=== PATIENT | female | born 1970 | race Caucasian/White ===

== ENCOUNTER → 2017-01-13 | Outpatient (CLI) | payer BC ==
[~2017-01-13] MED LIST: ALBU6.7H IH; ESTR-29 PO; FLUT16SP NS; LORC10TA PO; MELO15TA14 PO; MOME0.243 INH; PREG150C PO; ROPIVACAINE 1% 10 MG/ML (NAROPIN) 10 ML AMPUL ONE; SODIUM CHLORIDE VIAL (PF) 10 ML IV ONE; TIZA2CAP PO; methylPREDNISolone 80 MG/ML (DEPO MEDROL) VIAL IM ONE
--- NOTE | 2017-01-13 15:06 | PAIN MANAGEMENT ---
Date of note: 01/13/2017 Procedure: SI joint injection on the right side under fluoroscopy Fluoroscopy exposure 21 seconds This is a 46-year-old patient of Dr. Shilpa Church. The patient presents with right sacroiliitis. Informed consent was achieved for a right SI joint under fluoroscopic guidance. Orders for procedure verified. Patient denies any bleeding tendencies. After informed consent obtained, the patient was positioned in the lateral for the sacroiliac joint injection. The area was prepped and draped using aseptic technique. The skin and overlying tissues were localized with 5 mL of 1% Preservative-Free lidocaine using a 27-gauge 1.5-inch needle. A 21-gauge 2-inch needle was guided into the joint space utilizing fluoroscopy. Isovue 240, 0.2 mL was injected with proper placement of Isovue. No blood or paresthesia noted on entry. Then 10 mL of 0.02% ropivacaine with Depo-Medrol 80 mg were injected with negative aspiration every 2 mL. The patient remained supine for 20 minutes and developed no motor deficit of the lower extremity prior to release. Pre- and post procedure vital signs stable. Instruction on followup contact and care provided to the patient.
== END ==
LOC: PMC 13:54
PROVIDERS: ATTEND Family Medicine
DX: M53.3 Sacrococcygeal disorders, not elsewhere classified (principal); M46.1 Sacroiliitis, not elsewhere classified

== ENCOUNTER → 2017-02-13 | Outpatient (CLI) | payer BC ==
--- NOTE | 2017-02-16 09:00 | PAIN MANAGEMENT ---
Date of note: 02/13/2017 Procedure: Caudal epidural steroid injection Total fluoroscopic exposure time: 21 seconds This is a 46-year-old female patient under the care of Dr. Shilpa Church. The patient was referred to anesthesia for the purpose of an epidural steroid injection secondary to disk bulge with radicular symptoms. The patient had an MRI done, which showed a small broad-based disk bulge at L4-5 and L5-S1. The patient's pain is lumbosacral in nature. She has more pain following the S1-S2 dermatome levels with some potential involvement of L5. It radiates straight down the back of her leg, into her foot and then across her hip and buttock area. Based on presentation today we decided to proceed forward with a caudal epidural steroid injection. Informed consent was obtained and the patient was taken to the operating room for the use of fluoroscopic guidance for needle tip placement. The patient was placed in the left lateral decubitus. Orders for procedure verified. Patient denies any bleeding tendencies. After informed consent obtained, the patient was positioned for the caudal injection. Landmarks identified. The site was prepped and draped using aseptic technique. The skin and overlying tissues were localized with a 3 mL of Preservative-Free 1% lidocaine using a 1.5-inch 27-gauge needle. A 21-gauge 2-inch needle was then inserted to the caudal space via the sacral hiatus. No blood, cerebral spinal fluid, pain, or paresthesia was noted on entry. Depo-Medrol 80 mg and ropivacaine 0.2% in normal saline for a total of 10 mL was injected slowly without mass volume effect. Negative aspiration every 2 mL injected. The needle was then removed and the patient was then turned to the sitting position where she remained for approximately 10 minutes. She was then able to stand and walk under her own leg strength with the assistance of [facility] RN where she was dismissed with vital signs stable and faculties intact. She is asked to follow up via my cell phone in approximately 3 days. The patient states she understands these discharge instructions and I will follow her from there.
== END ==
LOC: PMC 13:08
PROVIDERS: ATTEND Family Medicine
DX: M51.17 Intervertebral disc disorders with radiculopathy, lumbosacral region (principal)
CPT/HCPCS: 62323; J1040; J2795; J7050